=== PATIENT | male | born 1945 | race Caucasian/White ===

== ENCOUNTER 2017-09-02 05:26 | Emergency (ER) | payer MEDICARE ==
[~2017-09-02] VITALS: Ht 172.7 cm; Wt 84.8 kg
[2017-09-02] MEDS ORDERED: OMEG-19 PO (06:07)
[2017-09-02] MEDS ORDERED: LACT1CAP35 PO (06:07)
[2017-09-02] MEDS ORDERED: UBID100C41 PO (06:07)
[2017-09-02] MEDS ORDERED: SPIR25TA3 PO (06:07)
[2017-09-02] MEDS ORDERED: ATOR20TA9 PO (06:07)
[2017-09-02] MEDS ORDERED: CARV12.52 PO (06:07)
[2017-09-02] MEDS ORDERED: ASPI-515 PO (06:07)
[2017-09-02] MEDS ORDERED: FURO20TA3 PO (06:07)
[2017-09-02] MEDS ORDERED: LOSA1TAB22 PO (06:07)
[2017-09-02] MEDS ORDERED: POTA10TA5 PO (06:07)
[2017-09-02] MEDS ORDERED: CYAN100014 PO (06:07)
[2017-09-02] MEDS ORDERED: ERGO500017 PO (06:07)
[2017-09-02 06:25] LABS: BASOPHILS # (AUTO) 0.06 x10^3/uL (0-0.1); BASOPHILS % (AUTO) 0 % (0-1); EOSINOPHILS # (AUTO) 0.32 x10^3/uL (0-0.4); EOSINOPHILS % (AUTO) 2 % (1-7); LYMPHOCYTES # (AUTO) 2.88 x10^3/uL (1-3.4); LYMPHOCYTES % (AUTO) 16 % (22-44); MD NO; MEAN CORPUSCULAR HEMOGLOBIN 30.1 pg (27.5-34.5); MEAN CORPUSCULAR HGB CONC 33.4 g/dL (33.2-36.2); MEAN PLATELET VOLUME 8.8 fL (7.4-10.4); MONOCYTES # (AUTO) 0.95 x10^3/uL (0.2-0.8); MONOCYTES % (AUTO) 5 % (2-9); NEUTROPHILS # (AUTO) 13.34 x10^3/uL (1.8-6.8); NEUTROPHILS % (AUTO) 76 % (42-75); PLATELET COUNT 261 x10^3/uL (130-400); RED BLOOD COUNT 5.01 x10^6/uL (4.38-5.82); RED CELL DISTRIBUTION WIDTH 12.8 % (9.4-14.8)
[2017-09-02 06:38] LABS: ALANINE AMINOTRANSFERASE 18 U/L (12-78); ALBUMIN 3.4 g/dL (3.4-5.0); ANION GAP 7 mmol/L (5-15); CALCIUM 8.6 mg/dL (8.5-10.1); CHLORIDE 100 mmol/L (98-107); CREATININE 0.79 mg/dL (0.7-1.3)
[2017-09-02 06:41] LABS: ALKALINE PHOSPHATASE 98 U/L (45-117); BILIRUBIN,TOTAL 0.6 mg/dL (0.2-1.0); TOTAL PROTEIN 7.3 g/dL (6.4-8.2)
[2017-09-02 08:05] VITALS: BP 111/66
[2017-09-02 08:30] LABS: MICROSCOPIC NOT IND
[2017-09-02 08:32] LABS: CULTURE INDICATED? NO
== END 2017-09-02 09:57 | disposition home or self-care (01) ==
LOC: ED 07:52
DX: N39.0 Urinary tract infection, site not specified (principal); I10 Essential (primary) hypertension; E11.9 Type 2 diabetes mellitus without complications; I25.10 Atherosclerotic heart disease of native coronary artery without angina pectoris; Z95.1 Presence of aortocoronary bypass graft
CPT/HCPCS: 36415; 51702; 74022; 80053; 81003; 83690; 85025; 93005; 99285